=== PATIENT | female | born 1985 | race Caucasian/White ===

== ENCOUNTER 2017-05-25 21:27 | Emergency (ER) | payer MEDICARE, MEDICAID ==
[2017-05-25] MEDS ORDERED: Ondansetron 4 MG/2 ML SDV IVPUSH ONE (22:08)
[2017-05-25] MEDS ORDERED: Sodium Chloride 0.9% 1,000 ML IV ONE (22:08)
[2017-05-25] MEDS ORDERED: HYDROmorphone 1 MG/ML Syringe IVPUSH ONE (22:08)
--- NOTE | 2017-05-25 22:23 | EDM.PDOC ---
<Erick Quintana - Last Filed: 05/26/17 01:30> ED HPI GENERAL MEDICAL PROBLEM - General Chief Complaint: Gastrointestinal Problem Stated Complaint: BACK PAIN AND VOMITING Time Seen by Provider: 05/25/17 21:58 - Related Data Allergies Allergy/AdvReac Type Severity Reaction Status Date / Time codeine Allergy Difficulty Verified 05/25/17 21:44 Breathing ketorolac [From Toradol] Allergy Rash Verified 05/25/17 21:44 tramadol Allergy Rash Verified 05/25/17 21:44 Home Meds: Home Meds Hydrocodone/Acetaminophen [Hydrocodon-Acetaminophn 10-325] 1 tab PO 5XDAY [History] Muscle Relaxers 1 tab PO Q6H PRN 05/25/17 [History] Ondansetron [Zofran ODT] 4 mg PO Q6H PRN 05/25/17 [History] Pregabalin [Lyrica] 50 mg PO TID 05/25/17 [History] traZODone 50 mg PO BEDTIME 05/25/17 [History] Sucralfate [Carafate] 1 gm PO QIDACANDBED #60 tablet 05/26/17 [Rx] Course - Vital Signs Last Recorded V/S: Last Vital Signs Temp 36.3 C 05/25/17 21:39 Pulse 110 H 05/25/17 21:39 Resp 18 05/25/17 21:39 BP 134/86 05/25/17 21:39 Pulse Ox 99 05/25/17 21:39 - Orders/Labs/Meds Orders: Active Orders 24 hr Category Date Time Status Peripheral IV Care [RC] . DIRECTED Care 05/25/17 22:09 Active Abdomen Pelvis w Cont [CT] Stat Exams 05/25/17 22:08 Taken CULTURE BLOOD [BC] Stat Lab 05/25/17 22:40 Received CULTURE BLOOD [BC] Stat Lab 05/25/17 22:50 Received Blood Culture x2 Reflex Set [OM.PC] Stat Oth 05/25/17 22:08 Ordered Peripheral IV Insertion Adult [OM.PC] Routine Oth 05/25/17 22:08 Ordered Labs: Laboratory Tests 05/25/17 05/25/17 05/25/17 Range/Units 22:30 22:40 22:40 WBC 8.41 (3.98-10.04) K/mm3 RBC 5.36 H (3.98-5.22) M/mm3 Hgb 12.4 (11.2-15.7) gm/L Hct 38.8 (34.1-44.9) % MCV 72.4 L (79.4-94.8) fl MCH 23.1 L (25.6-32.2) pg MCHC 32.0 L (32.2-35.5) g/dl RDW Std Deviation 39.8 (36.4-46.3) fL Plt Count 383 H (182-369) K/mm3 MPV 10.0 (9.4-12.3) fl Neutrophils % (Manual) 48 (40-60) % Band Neutrophils % 0 (0-10) % Lymphocytes % (Manual) 44 H (20-40) % Atypical Lymphs % 0 % Monocytes % (Manual) 4 (2-10) % Eosinophils % (Manual) 2 (0.7-5.8) % Basophils % (Manual) 2 H (0.1-1.2) Platelet Estimate Adequate Plt Morphology Comment Normal Anisocytosis 2+ moderate Microcytosis 2+ moderate RBC Morph Comment Abnormal Sodium 140 (136-145) mEq/L Potassium 3.2 L (3.5-5.1) mEq/L Chloride 105 (98-107) mEq/L Carbon Dioxide 22 (21-32) mEq/L Anion Gap 16.2 H (5-15) BUN 8 (7-18) mg/dL Creatinine 0.9 (0.55-1.02) mg/dL Est Cr Clr Drug Dosing 76.06 mL/min Estimated GFR (MDRD) > 60 (>60) mL/min BUN/Creatinine Ratio 8.9 L (14-18) Glucose 110 H (74-106) mg/dL Lactic Acid (0.4-2.0) mmol/L Calcium 8.6 (8.5-10.1) mg/dL Total Bilirubin 0.2 (0.2-1.0) mg/dL AST 26 (15-37) U/L ALT 39 (14-59) U/L Alkaline Phosphatase 119 H (46-116) U/L C-Reactive Protein 0.5 (<1.0) mg/dL Total Protein 7.9 (6.4-8.2) g/dl Albumin 3.4 (3.4-5.0) g/dl Globulin 4.5 gm/dL Albumin/Globulin Ratio 0.8 L (1-2) Lipase 151 (73-393) U/L HCG, Qual (NEGATIVE) Urine Color Light yellow (Yellow) Urine Appearance Slt cloudy H (Clear) Urine pH 6.0 (5.0-8.0) Ur Specific Bailey 1.025 (1.005-1.030) Urine Protein Negative (Negative) Urine Glucose (UA) Negative (Negative) Urine Ketones Negative (Negative) Urine Occult Blood 1+ H (Negative) Urine Nitrite Negative (Negative) Urine Bilirubin Negative (Negative) Urine Urobilinogen 0.2 (0.2-1.0) Ur Leukocyte Esterase Trace H (Negative) Urine RBC 5-10 H (0-5) /hpf Urine WBC 10-20 H (0-5) /hpf Ur Epithelial Cells 20-30 H (0-5) /hpf Urine Bacteria Few (FEW) /hpf Urine Mucus Not seen (FEW) /hpf 05/25/17 05/25/17 05/25/17 Range/Units 22:40 22:50 23:55 WBC (3.98-10.04) K/mm3 RBC (3.98-5.22) M/mm3 Hgb (11.2-15.7) gm/L Hct (34.1-44.9) % MCV (79.4-94.8) fl MCH (25.6-32.2) pg MCHC (32.2-35.5) g/dl RDW Std Deviation (36.4-46.3) fL Plt Count (182-369) K/mm3 MPV (9.4-12.3) fl Neutrophils % (Manual) (40-60) % Band Neutrophils % (0-10) % Lymphocytes % (Manual) (20-40) % Atypical Lymphs % % Monocytes % (Manual) (2-10) % Eosinophils % (Manual) (0.7-5.8) % Basophils % (Manual) (0.1-1.2) Platelet Estimate Plt Morphology Comment Anisocytosis Microcytosis RBC Morph Comment Sodium (136-145) mEq/L Potassium (3.5-5.1) mEq/L Chloride (98-107) mEq/L Carbon Dioxide (21-32) mEq/L Anion Gap (5-15) BUN (7-18) mg/dL Creatinine (0.55-1.02) mg/dL Est Cr Clr Drug Dosing mL/min Estimated GFR (MDRD) (>60) mL/min BUN/Creatinine Ratio (14-18) Glucose (74-106) mg/dL Lactic Acid 1.4 (0.4-2.0) mmol/L Calcium (8.5-10.1) mg/dL Total Bilirubin (0.2-1.0) mg/dL AST (15-37) U/L ALT (14-59) U/L Alkaline Phosphatase (46-116) U/L C-Reactive Protein (<1.0) mg/dL Total Protein (6.4-8.2) g/dl Albumin (3.4-5.0) g/dl Globulin gm/dL Albumin/Globulin Ratio (1-2) Lipase (73-393) U/L HCG, Qual Negative (NEGATIVE) Urine Color Light yellow (Yellow) Urine Appearance Clear (Clear) Urine pH 6.0 (5.0-8.0) Ur Specific Bailey 1.010 (1.005-1.030) Urine Protein Negative (Negative) Urine Glucose (UA) Negative (Negative) Urine Ketones Negative (Negative) Urine Occult Blood Negative (Negative) Urine Nitrite Negative (Negative) Urine Bilirubin Negative (Negative) Urine Urobilinogen 0.2 (0.2-1.0) Ur Leukocyte Esterase Negative (Negative) Urine RBC Not seen (0-5) /hpf Urine WBC 0-5 (0-5) /hpf Ur Epithelial Cells 0-5 (0-5) /hpf Urine Bacteria Rare (FEW) /hpf Urine Mucus Not seen (FEW) /hpf Meds: Medications Discontinued Medications Generic Name Dose Route Start Last Admin Trade Name Freq PRN Reason Stop Dose Admin Hydrocodone Bitart/Acetaminophen 1 tab 05/26/17 01:28 05/26/17 01:40 [place] 325-5 Mg PO 05/26/17 01:29 1 tab ONETIME ONE Administration Al Hydroxide/Mg Hydroxide 30 0 ml 05/26/17 00:43 05/26/17 00:46 ml/ Lidocaine HCl 15 ml PO 05/26/17 00:44 45 ml ONETIME ONE Administration Cyclobenzaprine HCl 10 mg 05/26/17 01:27 05/26/17 01:40 Flexeril PO 05/26/17 01:28 10 mg ONETIME ONE Administration Diatrizoate Meglum/Diatrizoate Sod 90 ml 05/25/17 23:14 05/25/17 23:36 Gastrografin 37% PO 05/25/17 23:15 90 ml ONETIME ONE Administration Hydromorphone HCl 1 mg 05/25/17 22:08 05/25/17 22:32 Dilaudid IVPUSH 05/25/17 22:09 1 mg ONETIME ONE Administration Sodium Chloride 1,000 mls @ 999 mls/hr 05/25/17 22:08 05/25/17 22:28 Normal Saline IV 05/25/17 23:08 999 mls/hr ONETIME ONE Administration Iopamidol 125 ml 05/25/17 23:14 05/25/17 23:36 Isovue-300 (61%) IVPUSH 05/25/17 23:15 125 ml ONETIME ONE Administration Ondansetron HCl 4 mg 05/25/17 22:08 05/25/17 22:31 Zofran IVPUSH 05/25/17 22:09 4 mg ONETIME ONE Administration Sodium Chloride 10 ml 05/25/17 22:08 05/25/17 23:36 Saline Flush FLUSH 10 ml ASDIRECTED PRN Administration Keep Vein Open Sucralfate 1 gm 05/26/17 01:26 Carafate PO 05/26/17 01:27 ONETIME ONE Sucralfate 1 gm 05/26/17 01:27 05/26/17 01:40 Carafate PO 05/26/17 01:28 1 gm ONETIME ONE Administration - Re-Assessments/Exams Free Text/Narrative Re-Assessment/Exam: 05/26/17 01:30 Laboratory evaluation was not that revealing urinalysis was grossly contaminated this was followed up with a catheter UA that did not suggest a infectious process or other pathology. Abdominal pelvic CT was done results did not show any acute process. My repeat examination of her abdomen revealed good bowel sounds soft she had some epigastric discomfort. Chest with some discomfort off to the right side and to the left side. She was given a GI cocktail this helped with the epigastric discomfort did not improve side discomfort to much. At this point the patient will be started on Carafate should be given a dose before discharge and sent home with a prescription for Carafate. At this time she'll be given one of her routine Flexeril and hydrocodone. Departure - Departure Time of Disposition: 01:32 Disposition: Home, Self-Care 01 Clinical Impression: Abdominal pain, GERD (gastroesophageal reflux disease), Dyspepsia - Discharge Information Prescriptions: Sucralfate [Carafate] 1 gm PO QIDACANDBED #60 tablet Instructions: Abdominal Pain, Adult, [id number], Gastroesophageal Reflux Disease, Adult Referrals: PCP,Not In Area [Primary Care Provider] - Forms: ED Department Discharge Additional Instructions: Return to the emergency room with any questions problems or worsening symptoms. Follow-up with your regular provider this next week. Continue year omeprazole take it one hour before your morning meal. You been started on Carafate take this just before breakfast lunch and supper and at bedtime for a total of 4 times daily. Take your other medications at least 1 hour before the Carafate or 2 hours after the Carafate. - My Orders Last 24 Hours: My Active Orders 05/25/17 22:08 Abdomen Pelvis w Cont [CT] Stat Blood Culture x2 Reflex Set [OM.PC] Stat Peripheral IV Insertion Adult [OM.PC] Routine 05/25/17 22:09 Peripheral IV Care [RC] . DIRECTED 05/25/17 22:40 CULTURE BLOOD [BC] Stat 05/25/17 22:50 CULTURE BLOOD [BC] Stat - Assessment/Plan Last 24 Hours: My Active Orders 05/25/17 22:08 Abdomen Pelvis w Cont [CT] Stat Blood Culture x2 Reflex Set [OM.PC] Stat Peripheral IV Insertion Adult [OM.PC] Routine 05/25/17 22:09 Peripheral IV Care [RC] . DIRECTED 05/25/17 22:40 CULTURE BLOOD [BC] Stat 05/25/17 22:50 CULTURE BLOOD [BC] Stat <Meghann Izaguirre - Last Filed: 05/26/17 11:23> ED HPI GENERAL MEDICAL PROBLEM - General Source of Information: Reports: Patient History Limitations: Reports: No Limitations - History of Present Illness INITIAL COMMENTS - FREE TEXT/NARRATIVE: 32-year-old female presents for evaluation treatment of epigastric abdominal pain. Patient reports that the pain started today around 1700. States that is located in the epigastric area and the bandlike sensation around her upper abdomen and radiates into the back. States that she tried hydrocodone and Zofran at home but vomited these up. She reports associated symptoms of fever, nausea, vomiting and bloating. She is also complaining of back pain. Reports that she vomited 3 times today. Reports that her fever has been in the 100s. Patient denies any dysuria or hematuria. She states that she does have trouble initiating urine stream. Last bowel movement was today. She has approximately 3 bowel movements per day. No melena or hematochezia. She does not recall her last menstrual. She has a nexplanon or implanon in place. She no longer has menstrual cycles on this. Previous abdominal surgeries include a cholecystectomy, lap band and LAP-BAND reversal. Reports that in January or December when she had the cholecystectomy she developed sepsis afterward. She states that her symptoms tonight feel similar to her sepsis. Patient recently relocated to [place] from [place]. Have a primary care provider, Valdemar Dinh in [place]. Patient reports that she is on hydrocortisone 10-325 and lyricia for chronic pain from scolosis. lower mid abdomen/epigastric area Pain Score (Numeric/FACES): 5 Past Medical History Cardiovascular History: Reports: Hypertension Musculoskeletal History: Reports: Arthritis Neurological History: Reports: Migraines Psychiatric History: Reports: Anxiety, Depression Endocrine/Metabolic History: Reports: Obesity/BMI 30+ - Past Surgical History HEENT Surgical History: Reports: Tonsillectomy GI Surgical History: Reports: Bariatric Procedure, Cholecystectomy Musculoskeletal Surgical History: Reports: Other (See Below) Other Musculoskeletal Surgeries/Procedures:: scoliosis, oscar placed in back Social & Family History - Family History Family Medical History: Noncontributory - Tobacco Use Smoking Status *Q: Never Smoker Second Hand Smoke Exposure: Yes - Caffeine Use Caffeine Use: Reports: None - Recreational Drug Use Recreational Drug Use: No ED ROS GENERAL - Review of Systems Review Of Systems: See Below Constitutional: Reports: Fever, Malaise GI/Abdominal: Reports: Abdominal Pain (epigastric with radiation to the back), Nausea, Vomiting. Denies: Diarrhea, Hematochezia, Melena : Reports: Other (trouble initating urine stream). Denies: Dysuria ED EXAM, GI/ABD - Physical Exam Exam: See Below Exam Limited By: No Limitations General Appearance: Alert, WD/WN, No Apparent Distress, Obese Respiratory/Chest: No Respiratory Distress, Lungs Clear, Normal Breath Sounds Cardiovascular: Normal Peripheral Pulses, Regular Rate, Rhythm, No Murmur GI/Abdominal Exam: Normal Bowel Sounds, Soft, Non-Tender Neurological: Alert, Oriented, Normal Cognition Psychiatric: Normal Affect, Normal Mood Skin Exam: Warm, Dry, Normal Color Course - Orders/Labs/Meds Labs: Laboratory Tests 05/25/17 05/25/17 05/25/17 Range/Units 22:30 22:40 22:40 WBC 8.41 (3.98-10.04) K/mm3 RBC 5.36 H (3.98-5.22) M/mm3 Hgb 12.4 (11.2-15.7) gm/L Hct 38.8 (34.1-44.9) % MCV 72.4 L (79.4-94.8) fl MCH 23.1 L (25.6-32.2) pg MCHC 32.0 L (32.2-35.5) g/dl RDW Std Deviation 39.8 (36.4-46.3) fL Plt Count 383 H (182-369) K/mm3 MPV 10.0 (9.4-12.3) fl Neutrophils % (Manual) 48 (40-60) % Band Neutrophils % 0 (0-10) % Lymphocytes % (Manual) 44 H (20-40) % Atypical Lymphs % 0 % Monocytes % (Manual) 4 (2-10) % Eosinophils % (Manual) 2 (0.7-5.8) % Basophils % (Manual) 2 H (0.1-1.2) Platelet Estimate Adequate Plt Morphology Comment Normal Anisocytosis 2+ moderate Microcytosis 2+ moderate RBC Morph Comment Abnormal Sodium 140 (136-145) mEq/L Potassium 3.2 L (3.5-5.1) mEq/L Chloride 105 (98-107) mEq/L Carbon Dioxide 22 (21-32) mEq/L Anion Gap 16.2 H (5-15) BUN 8 (7-18) mg/dL Creatinine 0.9 (0.55-1.02) mg/dL Est Cr Clr Drug Dosing 76.06 mL/min Estimated GFR (MDRD) > 60 (>60) mL/min BUN/Creatinine Ratio 8.9 L (14-18) Glucose 110 H (74-106) mg/dL Lactic Acid (0.4-2.0) mmol/L Calcium 8.6 (8.5-10.1) mg/dL Total Bilirubin 0.2 (0.2-1.0) mg/dL AST 26 (15-37) U/L ALT 39 (14-59) U/L Alkaline Phosphatase 119 H (46-116) U/L C-Reactive Protein 0.5 (<1.0) mg/dL Total Protein 7.9 (6.4-8.2) g/dl Albumin 3.4 (3.4-5.0) g/dl Globulin 4.5 gm/dL Albumin/Globulin Ratio 0.8 L (1-2) Lipase 151 (73-393) U/L HCG, Qual (NEGATIVE) Urine Color Light yellow (Yellow) Urine Appearance Slt cloudy H (Clear) Urine pH 6.0 (5.0-8.0) Ur Specific Bailey 1.025 (1.005-1.030) Urine Protein Negative (Negative) Urine Glucose (UA) Negative (Negative) Urine Ketones Negative (Negative) Urine Occult Blood 1+ H (Negative) Urine Nitrite Negative (Negative) Urine Bilirubin Negative (Negative) Urine Urobilinogen 0.2 (0.2-1.0) Ur Leukocyte Esterase Trace H (Negative) Urine RBC 5-10 H (0-5) /hpf Urine WBC 10-20 H (0-5) /hpf Ur Epithelial Cells 20-30 H (0-5) /hpf Urine Bacteria Few (FEW) /hpf Urine Mucus Not seen (FEW) /hpf 05/25/17 05/25/17 05/25/17 Range/Units 22:40 22:50 23:55 WBC (3.98-10.04) K/mm3 RBC (3.98-5.22) M/mm3 Hgb (11.2-15.7) gm/L Hct (34.1-44.9) % MCV (79.4-94.8) fl MCH (25.6-32.2) pg MCHC (32.2-35.5) g/dl RDW Std Deviation (36.4-46.3) fL Plt Count (182-369) K/mm3 MPV (9.4-12.3) fl Neutrophils % (Manual) (40-60) % Band Neutrophils % (0-10) % Lymphocytes % (Manual) (20-40) % Atypical Lymphs % % Monocytes % (Manual) (2-10) % Eosinophils % (Manual) (0.7-5.8) % Basophils % (Manual) (0.1-1.2) Platelet Estimate Plt Morphology Comment Anisocytosis Microcytosis RBC Morph Comment Sodium (136-145) mEq/L Potassium (3.5-5.1) mEq/L Chloride (98-107) mEq/L Carbon Dioxide (21-32) mEq/L Anion Gap (5-15) BUN (7-18) mg/dL Creatinine (0.55-1.02) mg/dL Est Cr Clr Drug Dosing mL/min Estimated GFR (MDRD) (>60) mL/min BUN/Creatinine Ratio (14-18) Glucose (74-106) mg/dL Lactic Acid 1.4 (0.4-2.0) mmol/L Calcium (8.5-10.1) mg/dL Total Bilirubin (0.2-1.0) mg/dL AST (15-37) U/L ALT (14-59) U/L Alkaline Phosphatase (46-116) U/L C-Reactive Protein (<1.0) mg/dL Total Protein (6.4-8.2) g/dl Albumin (3.4-5.0) g/dl Globulin gm/dL Albumin/Globulin Ratio (1-2) Lipase (73-393) U/L HCG, Qual Negative (NEGATIVE) Urine Color Light yellow (Yellow) Urine Appearance Clear (Clear) Urine pH 6.0 (5.0-8.0) Ur Specific Bailey 1.010 (1.005-1.030) Urine Protein Negative (Negative) Urine Glucose (UA) Negative (Negative) Urine Ketones Negative (Negative) Urine Occult Blood Negative (Negative) Urine Nitrite Negative (Negative) Urine Bilirubin Negative (Negative) Urine Urobilinogen 0.2 (0.2-1.0) Ur Leukocyte Esterase Negative (Negative) Urine RBC Not seen (0-5) /hpf Urine WBC 0-5 (0-5) /hpf Ur Epithelial Cells 0-5 (0-5) /hpf Urine Bacteria Rare (FEW) /hpf Urine Mucus Not seen (FEW) /hpf - Re-Assessments/Exams Free Text/Narrative Re-Assessment/Exam: 05/25/17 23:02 Will transfer care to Dr. Martinez, ER physician. Awaiting labs at this time. Patient made aware that her care is being transferred to another provider. Further instruction to come from Dr. Quintana.
[2017-05-25] MEDS: Sodium Chloride 0.9% 10 ML Syringe FLUSH PRN ×2 (22:32→23:36)
[2017-05-25] MEDS ORDERED: Diatrizoate Meglumine/Diatrizoate Sodium 37% 120 ML Bottle PO ONE (23:14)
[2017-05-25] MEDS ORDERED: Iopamidol 612 MG/ML 150 ML Bottle IVPUSH ONE (23:14)
[2017-05-26] MEDS ORDERED: Alum Hydrox/Mag Hydrox/Simeth 30 ML, Lidocaine 2% 15 ML PO ONE ×2 (00:43)
[2017-05-26] MEDS ORDERED: Sucralfate Suspension 1 GM/10 ML Cup PO ONE ×2 (01:26→01:27)
[2017-05-26] MEDS ORDERED: Cyclobenzaprine 10 MG Tab PO ONE (01:27)
[2017-05-26] MEDS ORDERED: Acetaminophen/HYDROcodone 325-5 MG Tab PO ONE (01:28)
--- NOTE | 2017-05-29 16:02 | CT ---
CT abdomen and pelvis Technique: Multiple axial sections were obtained from above the dome of the diaphragm inferiorly through the pubic symphysis. Intravenous and oral contrast has been given. Delayed images were obtained through the bladder. Comparison: No previous abdominal imaging. Findings: Small portion of the visualized lung bases are clear. Liver shows no focal parenchymal abnormality. Spleen appears within normal limits. Adrenal glands show no nodule. Surgical clips are seen from prior cholecystectomy. Pancreas appears within normal limits. 1.5 cm low density area is seen compatible with a cyst. No additional abnormalities seen within the kidneys. Aorta shows no aneurysmal dilatation. No retroperitoneal adenopathy or mesenteric abnormalities are seen. No pelvic mass or adenopathy is seen. The delayed images show contrast within the distal ureters and within the bladder. Appendix not visualized with certainty. Previous lumbar spine fractures seen with spinal fixation oscar in place. Vacuum phenomena noted within the L5-S1 disc. Deformity of the right iliac wing is seen compatible with old healed fracture or previous bone donor graft site. Impression: 1. Incidental findings. Nothing acute is identified on CT study of the abdomen and pelvis. Diagnostic code #2 I agree with preliminary report issued by [facility] ([facility] report finalized on 05/26/17, 1:08 AM Central Time)
== END 2017-05-26 01:47 | disposition home or self-care (01) ==
LOC: JD.ED 21:27
DX: K21.9 Gastro-esophageal reflux disease without esophagitis (principal); I10 Essential (primary) hypertension; Z97.5 Presence of (intrauterine) contraceptive device; Z90.49 Acquired absence of other specified parts of digestive tract; Z98.890 Other specified postprocedural states; M19.90 Unspecified osteoarthritis, unspecified site
CPT/HCPCS: 36415; 74177; 80053; 81001; 83605; 83690; 84703; 85025; 86140; 87040; 96361; 96374; 96375; 99284; A9270; J1170; J2405; J7040; J7050; P9612; Q9963; Q9967

== ENCOUNTER 2018-03-21 19:14 | Emergency (ER) | payer MEDICARE, MEDICAID ==
[2018-03-21] MEDS ORDERED: Sodium Chloride 0.9% 10 ML Syringe FLUSH PRN (19:34)
[2018-03-21] MEDS ORDERED: Sodium Chloride 0.9% 1,000 ML IV ONE (19:34)
[2018-03-21] MEDS ORDERED: HYDROmorphone 0.5 MG/0.5 ML SYRINGE IVPUSH ONE (19:35)
[2018-03-21] MEDS ORDERED: Prochlorperazine 10 MG/2 ML SDV IVPUSH ONE (19:35)
[2018-03-21] MEDS ORDERED: diphenhydrAMINE 50 MG/ML SDV IVPUSH ONE (19:35)
--- NOTE | 2018-03-21 19:43 | EDM.PDOC ---
ED HPI GENERAL MEDICAL PROBLEM - General Chief Complaint: Headache Stated Complaint: HEADACHE Time Seen by Provider: 03/21/18 19:20 Source of Information: Reports: Patient History Limitations: Reports: No Limitations - History of Present Illness INITIAL COMMENTS - FREE TEXT/NARRATIVE: The patient presents with a migraine. This started today. The headache is generalized. She has some photophobia. She has no numbness or weakness. She does have some nausea and vomiting. She took her last norco at 3pm today and that did not help. She is out of both her norco and dilaudid. Onset: Gradual Duration: Hour(s): Location: Reports: Head Quality: Reports: Ache Severity: Severe Improves with: Reports: None Worsens with: Reports: None Associated Symptoms: Reports: Headaches, Nausea/Vomiting. Denies: Chest Pain, Cough, Fever/Chills, Shortness of Breath Treatments CERTIFIED COATINGS INSPECTOR: Reports: Other Medication(s) Other Treatments CERTIFIED COATINGS INSPECTOR: NORCO Headache Pain Score (Numeric/FACES): 9 - Related Data Allergies Allergy/AdvReac Type Severity Reaction Status Date / Time codeine Allergy Difficulty Verified 03/21/18 19:21 Breathing ketorolac [From Toradol] Allergy Rash Verified 03/21/18 19:21 tramadol Allergy Rash Verified 03/21/18 19:21 Home Meds: Home Meds Hydrocodone/Acetaminophen [Hydrocodon-Acetaminophen 5-325] 1 - 2 each PO Q6HR PRN #15 tablet 03/21/18 [Rx] Past Medical History Cardiovascular History: Reports: Hypertension Musculoskeletal History: Reports: Arthritis Neurological History: Reports: Migraines Psychiatric History: Reports: Anxiety, Depression Endocrine/Metabolic History: Reports: Obesity/BMI 30+ - Past Surgical History HEENT Surgical History: Reports: Tonsillectomy GI Surgical History: Reports: Bariatric Procedure, Cholecystectomy Musculoskeletal Surgical History: Reports: Other (See Below) Other Musculoskeletal Surgeries/Procedures:: scoliosis, oscar placed in back Social & Family History - Family History Family Medical History: Noncontributory - Tobacco Use Smoking Status *Q: Never Smoker - Caffeine Use Caffeine Use: Reports: Soda - Recreational Drug Use Recreational Drug Use: No ED ROS GENERAL - Review of Systems Review Of Systems: See Below Constitutional: Reports: No Symptoms HEENT: Reports: No Symptoms Respiratory: Reports: No Symptoms Cardiovascular: Reports: No Symptoms Endocrine: Reports: No Symptoms GI/Abdominal: Reports: Nausea, Vomiting. Denies: Abdominal Pain : Reports: No Symptoms Musculoskeletal: Reports: No Symptoms Skin: Reports: No Symptoms Neurological: Reports: Headache - Physical Exam Exam: See Below Exam Limited By: No Limitations General Appearance: Alert, No Apparent Distress Ears: Normal External Exam Nose: Normal Inspection Head Exam: Atraumatic, Normocephalic Neck: Normal Inspection Respiratory/Chest: No Respiratory Distress, Lungs Clear, Normal Breath Sounds Cardiovascular: Regular Rate, Rhythm, No Edema, No Murmur GI/Abdominal: Soft, Non-Tender, No Organomegaly, No Mass Neuro Exam (Abbreviated): Alert, Oriented, No Motor/Sensory Deficits Course - Vital Signs Last Recorded V/S: Last Vital Signs Temp 96.8 F 03/21/18 19: Pulse 102 H 03/21/18 19:18 Resp 18 03/21/18 19:18 BP 150/96 H 03/21/18 19:18 Pulse Ox 99 03/21/18 19:18 - Orders/Labs/Meds Orders: Active Orders 24 hr Category Date Time Status Peripheral IV Care [RC] . DIRECTED Care 03/21/18 19:34 Active Sodium Chloride 0.9% [Normal Saline] 1,000 ml Med 03/21/18 19:34 Active IV ONETIME Sodium Chloride 0.9% [Saline Flush] Med 03/21/18 19:34 Active 10 ml FLUSH ASDIRECTED PRN Peripheral IV Insertion Adult [OM.PC] Routine Oth 03/21/18 19:34 Ordered Medication Orders Sodium Chloride (Normal Saline) 1,000 mls @ 1,000 mls/hr IV ONETIME ONE Stop: 03/21/18 20:33 Last Admin: 03/21/18 19:51 Dose: 1,000 mls/hr Sodium Chloride (Saline Flush) 10 ml FLUSH ASDIRECTED PRN PRN Reason: Keep Vein Open Last Admin: 03/21/18 19:54 Dose: 10 ml Meds: Medications Generic Name Dose Route Start Last Admin Trade Name Freq PRN Reason Stop Dose Admin Sodium Chloride 1,000 mls @ 1,000 mls/hr 03/21/18 19:34 03/21/18 19:51 Normal Saline IV 03/21/18 20:33 1,000 mls/hr ONETIME ONE Administration Sodium Chloride 10 ml 03/21/18 19:34 03/21/18 19:54 Saline Flush FLUSH 10 ml ASDIRECTED PRN Administration Keep Vein Open Discontinued Medications Generic Name Dose Route Start Last Admin Trade Name Mauri PRN Reason Stop Dose Admin Diphenhydramine HCl 50 mg 03/21/18 19:35 03/21/18 19:52 Benadryl IVPUSH 03/21/18 19:36 50 mg ONETIME ONE Administration Hydromorphone HCl 0.5 mg 03/21/18 19:35 03/21/18 19:54 Dilaudid IVPUSH 03/21/18 19:36 0.5 mg ONETIME ONE Administration Prochlorperazine Edisylate 10 mg 03/21/18 19:35 03/21/18 19:51 Compazine IVPUSH 03/21/18 19:36 10 mg ONETIME ONE Administration - Re-Assessments/Exams Free Text/Narrative Re-Assessment/Exam: 03/21/18 19:43 I ordered an IV NS 1L bolus, compazine 10mg IV, benadryl 50mg IV, and dilaudid 0.5mg IV. 03/21/18 20:10 She feels better. I will discharge her home. Departure - Departure Time of Disposition: 20:10 Disposition: Home, Self-Care 01 Condition: Good Clinical Impression: Migraine - Discharge Information *PRESCRIPTION DRUG MONITORING PROGRAM REVIEWED*: No *COPY OF PRESCRIPTION DRUG MONITORING REPORT IN PATIENT SAMANTHA: No Prescriptions: Hydrocodone/Acetaminophen [Hydrocodon-Acetaminophen 5-325] 1 - 2 each PO Q6HR PRN #15 tablet PRN Reason: Pain Referrals: PCP,Not In Area [Primary Care Provider] - Forms: ED Department Discharge Additional Instructions: Go home and rest in a quiet dark room. Take the hydrocodone as needed. Follow up with your provider. Please return if you are worse. - My Orders Last 24 Hours: My Active Orders 03/21/18 19:34 Peripheral IV Care [RC] . DIRECTED Sodium Chloride 0.9% [Normal Saline] 1,000 ml IV ONETIME Sodium Chloride 0.9% [Saline Flush] 10 ml FLUSH ASDIRECTED PRN Peripheral IV Insertion Adult [OM.PC] Routine - Assessment/Plan Last 24 Hours: My Active Orders 03/21/18 19:34 Peripheral IV Care [RC] . DIRECTED Sodium Chloride 0.9% [Normal Saline] 1,000 ml IV ONETIME Sodium Chloride 0.9% [Saline Flush] 10 ml FLUSH ASDIRECTED PRN Peripheral IV Insertion Adult [OM.PC] Routine
== END 2018-03-21 20:20 | disposition home or self-care (01) ==
LOC: JD.ED 19:14
DX: G43.909 Migraine, unspecified, not intractable, without status migrainosus (principal); E66.9 Obesity, unspecified; Z88.5 Allergy status to narcotic agent; Z88.8 Allergy status to other drugs, medicaments and biological substances
CPT/HCPCS: 96374; 96375; 99283; J0780; J1170; J1200; J7040; J7050; 99284

== ENCOUNTER 2018-03-29 17:59 | Emergency (ER) | payer MEDICARE, MEDICAID ==
[2018-03-29] MEDS ORDERED: Sodium Chloride 0.9% 10 ML Syringe FLUSH PRN (19:02)
[2018-03-29] MEDS ORDERED: Prochlorperazine 10 MG/2 ML SDV IVPUSH ONE (19:03)
[2018-03-29] MEDS ORDERED: diphenhydrAMINE 50 MG/ML SDV IVPUSH ONE (19:03)
[2018-03-29] MEDS: Ketorolac 30 MG/ML SDV IVPUSH ONE ×2 (19:15→19:20)
--- NOTE | 2018-03-29 19:17 | EDM.PDOC ---
ED HPI GENERAL MEDICAL PROBLEM - General Chief Complaint: Headache Stated Complaint: THROWING UP/MIGRAINE Time Seen by Provider: 03/29/18 18:55 Source of Information: Reports: Patient History Limitations: Reports: No Limitations - History of Present Illness INITIAL COMMENTS - FREE TEXT/NARRATIVE: The patient presents with a headache. She has a history of migraines. She took her medications but they are not helping. She has pain behind her left eye. She has nausea and vomiting and photophobia. She has no numbness or weakness. The headache started today. Onset: Gradual Duration: Hour(s): Location: Reports: Head Quality: Reports: Ache Severity: Severe Improves with: Reports: None Worsens with: Reports: None Associated Symptoms: Reports: Headaches, Nausea/Vomiting. 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(s) Headache Pain Score (Numeric/FACES): 9 - Related Data Allergies Allergy/AdvReac Type Severity Reaction Status Date / Time codeine Allergy Difficulty Verified 03/21/18 19:21 Breathing ketorolac [From Toradol] Allergy Rash Verified 03/21/18 19:21 tramadol Allergy Rash Verified 03/21/18 19:21 Home Meds: Home Meds Hydrocodone/Acetaminophen [Hydrocodon-Acetaminophen 5-325] 1 - 2 each PO Q6HR PRN #15 tablet 03/21/18 [Rx] Cyclobenzaprine [Flexeril] 5 mg PO ATDISCHARGE PRN 03/29/18 [History] Ondansetron HCl [Zofran] 4 mg PO ASDIRECTED PRN 03/29/18 [History] Ondansetron [Zofran ODT] 4 mg PO Q6H PRN #20 tab.dis 03/29/18 [Rx] Pregabalin [Lyrica] 50 mg PO BID 03/29/18 [History] SUMAtriptan [Imitrex] 25 mg PO ASDIRECTED PRN 03/29/18 [History] Past Medical History Cardiovascular History: Reports: Hypertension Musculoskeletal History: Reports: Arthritis Neurological History: Reports: Migraines Psychiatric History: Reports: Anxiety, Depression Endocrine/Metabolic History: Reports: Obesity/BMI 30+ - Infectious Disease History Infectious Disease History: Reports: Chicken Pox, Influenza - Past Surgical History HEENT Surgical History: Reports: Tonsillectomy GI Surgical History: Reports: Bariatric Procedure, Cholecystectomy Musculoskeletal Surgical History: Reports: Other (See Below) Other Musculoskeletal Surgeries/Procedures:: scoliosis, oscar placed in back Social & Family History - Family History Family Medical History: Noncontributory - Tobacco Use Smoking Status *Q: Never Smoker - Caffeine Use Caffeine Use: Reports: Energy Drinks, Soda - Recreational Drug Use Recreational Drug Use: No ED ROS GENERAL - Review of Systems Review Of Systems: See Below Constitutional: Reports: No Symptoms HEENT: Reports: No Symptoms Respiratory: Reports: No Symptoms Cardiovascular: Reports: No Symptoms Endocrine: Reports: No Symptoms GI/Abdominal: Reports: Nausea, Vomiting. Denies: Abdominal Pain : Reports: No Symptoms Musculoskeletal: Reports: No Symptoms Neurological: Reports: Headache - Physical Exam Exam: See Below Exam Limited By: No Limitations General Appearance: Alert, No Apparent Distress Ears: Normal External Exam Nose: Normal Inspection Head Exam: Atraumatic, Normocephalic Neck: Normal Inspection Respiratory/Chest: No Respiratory Distress, Lungs Clear, Normal Breath Sounds Cardiovascular: Regular Rate, Rhythm, No Edema, No Murmur GI/Abdominal: Soft, Non-Tender, No Organomegaly, No Mass Neuro Exam (Abbreviated): Alert, Oriented, No Motor/Sensory Deficits Course - Vital Signs Last Recorded V/S: Last Vital Signs Temp 97.3 F 03/29/18 18:50 Pulse 110 H 03/29/18 18:50 Resp 16 03/29/18 18:50 BP 124/78 03/29/18 18:50 Pulse Ox 95 03/29/18 18:50 - Orders/Labs/Meds Orders: Active Orders 24 hr Category Date Time Status Peripheral IV Care [RC] . DIRECTED Care 03/29/18 19:03 Active Sodium Chloride 0.9% [Saline Flush] Med 03/29/18 19:02 Active 10 ml FLUSH ASDIRECTED PRN Peripheral IV Insertion Adult [OM.PC] Routine Oth 03/29/18 19:02 Ordered Medication Orders Sodium Chloride (Saline Flush) 10 ml FLUSH ASDIRECTED PRN PRN Reason: Keep Vein Open Last Admin: 03/29/18 19:15 Dose: 10 ml Meds: Medications Generic Name Dose Route Start Last Admin Trade Name Freq PRN Reason Stop Dose Admin Sodium Chloride 10 ml 03/29/18 19:02 03/29/18 19:15 Saline Flush FLUSH 10 ml ASDIRECTED PRN Administration Keep Vein Open Discontinued Medications Generic Name Dose Route Start Last Admin Trade Name Mauri PRN Reason Stop Dose Admin Diphenhydramine HCl 50 mg 03/29/18 19:03 03/29/18 19:15 Benadryl IVPUSH 03/29/18 19:04 50 mg ONETIME ONE Administration Hydromorphone HCl 1 mg 03/29/18 19:20 03/29/18 19:23 Dilaudid IVPUSH 03/29/18 19:21 1 mg ONETIME ONE Administration Ketorolac Tromethamine 30 mg 03/29/18 19:03 03/29/18 19:20 Toradol IVPUSH 03/29/18 19:04 Not Given ONETIME ONE Prochlorperazine Edisylate 10 mg 03/29/18 19:03 03/29/18 19:15 Compazine IVPUSH 03/29/18 19:04 10 mg ONETIME ONE Administration - Re-Assessments/Exams Free Text/Narrative Re-Assessment/Exam: 03/29/18 19:17 I ordered an IV saline lock, compazine 10g IV, toradol 30mg IV, and benadryl 50mg IV. 03/29/18 20:02 She is allergic to toradol so I canceled that and I ordered dilaudid 1mg IV. She feels better. I will discharge her home. Departure - Departure Time of Disposition: 20:05 Disposition: Home, Self-Care 01 Condition: Good Clinical Impression: Migraine - Discharge Information *PRESCRIPTION DRUG MONITORING PROGRAM REVIEWED*: No *COPY OF PRESCRIPTION DRUG MONITORING REPORT IN PATIENT SAMANTHA: No Prescriptions: Ondansetron [Zofran ODT] 4 mg PO Q6H PRN #20 tab.dis PRN Reason: Nausea\vomiting Forms: ED Department Discharge Additional Instructions: Go home and rest in a quiet, dark room. Take your medication as prescribed. Please return if you are worse. - My Orders Last 24 Hours: My Active Orders 03/29/18 19:02 Sodium Chloride 0.9% [Saline Flush] 10 ml FLUSH ASDIRECTED PRN Peripheral IV Insertion Adult [OM.PC] Routine 03/29/18 19:03 Peripheral IV Care [RC] . DIRECTED - Assessment/Plan Last 24 Hours: My Active Orders 03/29/18 19:02 Sodium Chloride 0.9% [Saline Flush] 10 ml FLUSH ASDIRECTED PRN Peripheral IV Insertion Adult [OM.PC] Routine 03/29/18 19:03 Peripheral IV Care [RC] . DIRECTED
[2018-03-29] MEDS ORDERED: HYDROmorphone 1 MG/ML Syringe IVPUSH ONE (19:20)
== END 2018-03-29 20:18 | disposition home or self-care (01) ==
LOC: JD.ED 17:59
DX: G43.909 Migraine, unspecified, not intractable, without status migrainosus (principal); F32.9 Major depressive disorder, single episode, unspecified; F41.9 Anxiety disorder, unspecified; Z88.5 Allergy status to narcotic agent; Z88.8 Allergy status to other drugs, medicaments and biological substances
CPT/HCPCS: 96374; 96375; 99283; J0780; J1170; J1200; J7050; 99284; J1885